=== PATIENT | female | born 1935 | race Caucasian/White ===

== ENCOUNTER 2017-06-12 10:29 | Emergency (ER) | payer OTHER ==
[~2017-06-12] VITALS: Ht 157.5 cm; Wt 56.7 kg
[2017-06-12 14:38] VITALS: BP 152/80
== END 2017-06-12 14:39 | disposition home or self-care (01) ==
LOC: EME 10:29
DX: S00.03XA Contusion of scalp, initial encounter (principal); W01.0XXA Fall on same level from slipping, tripping and stumbling without subsequent striking against object, initial encounter; Z88.0 Allergy status to penicillin
CPT/HCPCS: 70450; 99281; 99283